=== PATIENT | male | born 1990 | race Caucasian/White ===

== ENCOUNTER 2021-04-09 11:40 | Emergency (ER) | payer BC ==
[2021-04-09] MEDS ORDERED: Ketorolac 30 MG/ML SDV IVPUSH ONE (11:49)
[2021-04-09] MEDS ORDERED: Sodium Chloride 0.9% 1,000 ML IV ONE (11:50)
[2021-04-09 12:34] VITALS: BP 137/89; PULSE 69
[2021-04-09 12:40] LABS: ANION GAP 16.3 mmol/L (5-15); CHLORIDE,CL 106 mmol/L (98-107); SODIUM,NA 144 mmol/L (136-145)
--- NOTE | 2021-04-09 13:06 | EDM.PDOC ---
ED HPI GENERAL MEDICAL PROBLEM - General Chief Complaint: Abdominal Pain Stated Complaint: LEFT SIDE FLANK PAIN Time Seen by Provider: 04/09/21 12:01 Source of Information: Reports: Patient History Limitations: Reports: No Limitations - History of Present Illness INITIAL COMMENTS - FREE TEXT/NARRATIVE: 30 YO WM PRESENTS WITH SUDDEN ONSET LEFT FLANK PAIN WITH RADIATION TO LEFT LOWER QUADRANT OF ABDOMEN WHICH BEGAN JUST PRIOR TO ARRIVAL. PT REPORTS HE WAS WALKING WHEN HE FELT THIS PAIN AND IT BEGAN TO INTENSIFY WITH ASSOCIATED NAUSEA, DIAPHORESIS, AND DIZZINESS. PT DENIES SYNCOPE. NO FEVER/CHILLS, NO DYSURIA OR URINARY FREQUENCY. PT THINKS HE MAY HAVE A KIDNEY STONE MANY MEMBERS OF HIS FAMILY HAVE HAD IN THE PAST. PT DENIES HISTORY OF KIDNEY STONES. Onset: Sudden Duration: Getting Worse Location: Reports: Abdomen, Back Quality: Reports: Sharp Severity: Severe Improves with: Reports: None Worsens with: Reports: None Associated Symptoms: Reports: No Other Symptoms, Nausea/Vomiting Left Abdomen Pain Score (Numeric/FACES): 10 - Related Data Allergies Allergy/AdvReac Type Severity Reaction Status Date / Time No Known Drug Allergies Allergy Other Verified 04/09/21 12:35 Home Meds: Home Meds . [No Known Home Meds] 04/06/15 [History] Past Medical History - Past Health History Medical/Surgical History: Denies Medical/Surgical History Social & Family History - Tobacco Use Tobacco Use Status *Q: Never Tobacco User - Caffeine Use Caffeine Use: Reports: Soda - Recreational Drug Use Recreational Drug Use: No ED ROS GENERAL - Review of Systems Review Of Systems: See Below Constitutional: Reports: No Symptoms HEENT: Reports: No Symptoms Respiratory: Reports: No Symptoms Cardiovascular: Reports: No Symptoms Endocrine: Reports: No Symptoms GI/Abdominal: Reports: Abdominal Pain : Reports: Flank Pain Musculoskeletal: Reports: No Symptoms Skin: Reports: No Symptoms Neurological: Reports: No Symptoms Psychiatric: Reports: No Symptoms Hematologic/Lymphatic: Reports: No Symptoms Immunologic: Reports: No Symptoms ED EXAM, RENAL/ - Physical Exam Exam: See Below Exam Limited By: No Limitations General Appearance: Alert, WD/WN, Moderate Distress Head: Atraumatic, Normocephalic Neck: Normal Inspection, Supple, Non-Tender, Full Range of Motion Respiratory/Chest: No Respiratory Distress, Lungs Clear, Normal Breath Sounds, No Accessory Muscle Use, Chest Non-Tender Cardiovascular: Normal Peripheral Pulses, Regular Rate, Rhythm, No Edema, No Gallop, No JVD, No Murmur, No Rub GI/Abdominal: Normal Bowel Sounds, Soft, Non-Tender, No Organomegaly, No Distention, No Abnormal Bruit, No Mass Back Exam: CVA Tenderness (L) Extremities: Normal Inspection, Normal Range of Motion, Non-Tender, Normal Capillary Refill, No Pedal Edema Neurological: Alert, Oriented, CN II-XII Intact, Normal Cognition, Normal Gait, No Motor/Sensory Deficits Psychiatric: Normal Affect, Normal Mood Skin Exam: Warm, Dry, Intact, Normal Color, No Rash Lymphatic: No Adenopathy Course - Vital Signs Last Recorded V/S: Last Vital Signs Temp 97.2 F 04/09/21 12:32 Pulse 69 04/09/21 12:32 Resp 20 04/09/21 12:32 BP 137/89 04/09/21 12:32 Pulse Ox 98 04/09/21 12:32 - Orders/Labs/Meds Orders: Active Orders 24 hr Category Date Time Status UA W/ABBEY RFLX IF INDICATED [URIN] Stat Lab 04/09/21 11:51 Ordered Labs: Laboratory Tests 04/09/21 04/09/21 04/09/21 Range/Units 12:05 12:05 13:20 WBC 10.32 H (5.00-10.00) 10^3/uL RBC 4.87 (4.50-6.00) 10^6/uL Hgb 14.3 (13.0-17.0) g/dL Hct 42.8 (40.0-52.0) % MCV 87.9 (82.0-92.0) fL MCH 29.4 (27.0-31.0) pg MCHC 33.4 (32.0-36.0) g/dL RDW 12.5 (11.5-14.5) % Plt Count 242 (150-400) 10^3/uL MPV 9.2 (7.4-10.4) fL Immature Gran % (Auto) 0.2 (0.0-5.0) % Neut % (Auto) 78.8 H (50.0-70.0) % Lymph % (Auto) 12.2 L (20.0-40.0) % [place] % (Auto) 6.5 (2.0-8.0) % Eos % (Auto) 1.9 (1.0-3.0) % Baso % (Auto) 0.4 (0.0-1.0) % Neut # (Auto) 8.13 H (2.50-7.00) 10^3/uL Lymph # (Auto) 1.26 (1.00-4.00) 10^3/uL [place] # (Auto) 0.67 (0.10-0.80) 10^3/uL Eos # (Auto) 0.20 (0.10-0.30) 10^3/uL Baso # (Auto) 0.04 (0.00-0.10) 10^3/uL Immature Gran # (Auto) 0.02 (0.00-0.50) 10^3/uL Sodium 144 (136-145) mmol/L Potassium 4.3 (3.5-5.1) mmol/L Chloride 106 (98-107) mmol/L Carbon Dioxide 26.0 (21.0-32.0) mmol/L Anion Gap 16.3 H (5-15) mmol/L BUN 17 (7-18) mg/dL Creatinine 1.05 (0.51-1.17) mg/dL Est Cr Clr Drug Dosing 116.26 mL/min Estimated GFR (MDRD) > 60 mL/min Glucose 151 H (70-140) mg/dL Calcium 9.0 (8.7-10.3) mg/dL Urine Color Yellow (YELLOW) Urine Appearance Clear (CLEAR) Urine pH 6.0 (5.0-9.0) Ur Specific [place] >= 1.030 (1.005-1.030) Urine Protein Negative (NEGATIVE) mg/dL Urine Glucose (UA) Negative (NEGATIVE) mg/dL Urine Ketones 40 H (NEGATIVE) mg/dL Urine Occult Blood Moderate H (NEGATIVE) Urine Nitrite Negative (NEGATIVE) Urine Bilirubin Negative (NEGATIVE) Urine Urobilinogen 0.2 (0.2-1.0) E.U./dL Ur Leukocyte Esterase Negative (NEGATIVE) Meds: Medications Discontinued Medications Generic Name Dose Route Start Last Admin Trade Name Freq PRN Reason Stop Dose Admin Sodium Chloride 1,000 mls @ 999 mls/hr 04/09/21 11:50 Normal Saline IV 04/09/21 12:50 .BOLUS ONE Ketorolac Tromethamine 30 mg 04/09/21 11:49 Ketorolac 30 Mg/Ml Sdv IVPUSH 04/09/21 11:50 ONETIME ONE Tramadol HCl 400 mg 04/09/21 13:23 Tramadol 50 Mg Tab PO 04/09/21 13:24 ONETIME ONE - Radiology Interpretation Free Text/Narrative:: CT ABD/PELVIS- 3MM STONE IN UVJ MILD HYDRONEPHROSIS - Re-Assessments/Exams Free Text/Narrative Re-Assessment/Exam: 04/09/21 13:19 PAIN RESOLVED AFTER IV TORADOL. PT APPEARS COMFORTABLE AND IN NAD. Departure - Departure Time of Disposition: 13:25 Disposition: Home, Self-Care 01 Condition: Good Clinical Impression: Kidney stone on left side - Discharge Information Instructions: Kidney Stones Referrals: Jorden Mckeon MD [Primary Care Provider] - Forms: ED Department Discharge Additional Instructions: 1. DISCHARGE HOME 2. ULTRAM 50-100MG EVERY 4-6 HOURS NEEDED FOR PAIN 3. DRINK PLENTY OF FLUIDS 4. MOTRIN 600MG EVERY 6 HOURS NEEDED FOR PAIN 5. RETURN TO ER FOR WORSENING SYMPTOMS Sepsis Event Note (ED) - Evaluation Sepsis Screening Result: No Definite Risk - Focused Exam Vital Signs: Vital Signs Temp Pulse Resp BP Pulse Ox 04/09/21 12:32 97.2 F 69 20 137/89 98 - My Orders Last 24 Hours: My Active Orders 04/09/21 11:51 UA W/ABBEY RFLX IF INDICATED [URIN] Stat - Assessment/Plan Last 24 Hours: My Active Orders 04/09/21 11:51 UA W/ABBEY RFLX IF INDICATED [URIN] Stat Assessment:: 1. RENAL CALCULI WITH HYDRONEPHROSIS Plan: 1. DISCHARGE HOME 2. ULTRAM 50-100MG EVERY 4-6 HOURS NEEDED FOR PAIN 3. DRINK PLENTY OF FLUIDS 4. MOTRIN 600MG EVERY 6 HOURS NEEDED FOR PAIN 5. RETURN TO ER FOR WORSENING SYMPTOMS
--- NOTE | 2021-04-09 13:11 | CT ---
[id number] CT/CT Abdomen Pelvis WO IV EXAM: CT Abdomen Pelvis WO IV CLINICAL DATA: ABDOMINAL PAIN COMPARISON STUDY: None. FINDINGS: Lung bases are clear. Liver, spleen, gallbladder, pancreas, adrenal glands, and right kidney. 3 mm stone at the left vesicoureteral junction resulting in mild left hydroureteronephrosis. No bowel obstruction or inflammation. The appendix is visualized and appears normal. No lymphadenopathy, free fluid, or pneumoperitoneum. No fracture or osseous lesion. IMPRESSION: 3 mm stone at the left vesicoureteral junction resulting in mild left hydroureteronephrosis. Rafat Bhardwaj DO 04/09/21 [id number] Thank you for allowing us to participate in the care of your patient.
[2021-04-09] MEDS ORDERED: traMADol 50 MG Tab PO ONE (13:23)
== END 2021-04-09 13:40 | disposition home or self-care (01) ==
LOC: KA.ED 11:40
DX: N13.2 Hydronephrosis with renal and ureteral calculous obstruction (principal)
CPT/HCPCS: 36415; 74176; 80048; 81001; 85025; 96374; 99284; A9270; J1885; J7030; 99283